=== PATIENT | male | born 1950 | race Caucasian/White ===

== ENCOUNTER → 2018-02-03 09:00 | Outpatient (CLI) | payer MEDICARE, BC, SELFPAY | PROVIDERS: PCP Nurse Practitioner Family; Visit Provider Orthopaedic Surgery | DX: Z47.1 Aftercare following joint replacement surgery (principal); Z96.652 Presence of left artificial knee joint | CPT/HCPCS: 99213 ==

== ENCOUNTER → 2018-09-29 09:00 | Outpatient (BNVA) | payer MEDICARE, BC, SELFPAY | PROVIDERS: PCP Nurse Practitioner Family; Visit Provider Orthopaedic Surgery | DX: Z47.1 Aftercare following joint replacement surgery (principal); Z96.643 Presence of artificial hip joint, bilateral; I10 Essential (primary) hypertension | CPT/HCPCS: 99211; 99212; 99213 ==

== ENCOUNTER 2018-10-26 09:00 | Outpatient (RCR) | payer MEDICARE, BC, SELFPAY | END 2018-10-27 23:59 | disposition home or self-care (01) | LOC: CR 09:00 | PROVIDERS: PCP Nurse Practitioner Family; Visit Provider Family Medicine | DX: Z95.1 Presence of aortocoronary bypass graft (principal); Z51.89 Encounter for other specified aftercare | CPT/HCPCS: S9472 ==

== ENCOUNTER 2018-11-27 11:53 | Outpatient (RCR) | payer MEDICARE, BC, SELFPAY | END 2018-11-27 23:59 | disposition home or self-care (01) | LOC: CR 11:53 | PROVIDERS: PCP Nurse Practitioner Family; Visit Provider Family Medicine | DX: Z95.1 Presence of aortocoronary bypass graft (principal); Z51.89 Encounter for other specified aftercare | CPT/HCPCS: S9472 ==

== ENCOUNTER 2018-12-25 11:21 | Outpatient (RCR) | payer MEDICARE, BC, SELFPAY | END 2018-12-27 23:59 | disposition home or self-care (01) | LOC: CR 11:21 | PROVIDERS: PCP Nurse Practitioner Family; Visit Provider Family Medicine | DX: Z95.1 Presence of aortocoronary bypass graft (principal); Z51.89 Encounter for other specified aftercare | CPT/HCPCS: S9472 ==

== ENCOUNTER 2019-01-01 09:00 | Outpatient (RCR) | payer MEDICARE, BC, SELFPAY | END 2019-01-27 23:59 | disposition home or self-care (01) | LOC: CR 09:00 | PROVIDERS: PCP Nurse Practitioner Family; Visit Provider Family Medicine | DX: Z95.1 Presence of aortocoronary bypass graft (principal); Z51.89 Encounter for other specified aftercare | CPT/HCPCS: S9472 ==

== ENCOUNTER 2019-07-06 13:56 | Emergency (ER) | payer MEDICARE, BC, SELFPAY ==
[2019-07-06] VITALS (25 sets, daily range): BP systolic 86–157; BP diastolic 56–92; PULSE 59–78; RESP 10–20; TEMP 36.8–37.2; O2SAT 83–99
[2019-07-06] MEDS: fentaNYL 100 MCG/2 ML VIAL (14:05)
--- NOTE | 2019-07-06 14:12 | DI.RAD_ITS ---
EXAM: XR HIP LT 1V INDICATION: HIP PAIN W PROBABLY DISLOCATION. COMPARISON: No exams were available for comparison TECHNIQUE: 2D digital imaging was performed. Portable exam FINDINGS: There is dislocation of the left hip prosthesis with the femoral component positioned superolateral t o the acetabular component. The penetration is suboptimal but no fractures are seen. The right tota l hip prosthesis appears intact. IMPRESSION: Dislocation of the left hip prosthesis.
[2019-07-06] MEDS: fentaNYL 100 MCG/2 ML VIAL IVP (14:15)
[2019-07-06] MEDS: Normal Saline 1,000 ML 150 ML IV (14:22)
[2019-07-06] MEDS: Propofol 200 MG/20 ML VIAL IVP (14:28)
--- NOTE | 2019-07-06 15:00 | DI.RAD_ITS ---
EXAM: XR HIP LT AP AND LAT ONLY INDICATION: POST REDUCTION. COMPARISON: No exams were available for comparison TECHNIQUE: 2D digital imaging was performed. FINDINGS: The previously noted dislocation has been reduced. No fracture is identified.
--- NOTE | 2019-07-06 15:19 | ED.GENADUL_ITS ---
Discharge Plan Disposition Patient Disposition: HOME Discharge Details Chief Complaint: Orthopedic Clinical Impression: Dislocation of internal left hip prosthesis, initial encounter Primary Care Provider: Henrique Webber ED Provider: Ziyad Miranda Home Meds and New Rx's Prescriptions: No Action metoprolol succinate 50 mg cap,sprinkle,ER 24hr dose pack 50 mg PO BID RF: 0 indomethacin 50 mg capsule 50 mg PO BID PRNRF: 0 simvastatin 40 MG tablet 40 mg PO DAILY RF: 0 lorazepam 1 MG tablet 1 mg PO .HS RF: 0 ibuprofen 200 MG tablet 200 - 800 mg PO PRN PRNRF: 0 aspirin [Aspirin Low-Strength] 81 MG tablet,chewable 81 mg PO DAILY RF: 0 multivitamin [Men's Multi-Vitamin] 1 EACH tablet 1 ea PO DAILY RF: 0 chlorthalidone 25 mg Tablet 12.5 mg PO DAILY RF: 0 Discharge Instructions Additional Instructions: 1. Drink plenty of fluids. 2. Continue all medications as prescribed. 3. Acetaminophen 1000mg every 4 hours (up to 5 time a day) as needed for fever or pain. 4. Mild to moderate activity as tolerated. No skiing. Follow-up with your orthopedic doctor in 1 month. Return to the Emergency Department (ED) if your condition worsens, does not improve as expected, or for ANY other concerns. Specifically, return if you have new or uncontrolled pain, worsening fever, difficulty breathing, vomiting, or are unable to drink fluids. Medical Decision Making Presented with acute left hip pain associated with an internal cyst rotation and hip flexion. Patient with clinical radiographic left prosthetic hip dislocation. Otherwise nonfocal exam and stable vital signs. X-ray confirmed dislocation. Hip successfully reduced emergently using procedural sedation with fentanyl and propofol. Reduction clinically confirmed and radiographically confirmed. On reevaluation patient is clinical improved with minimal focal hip pain. Discussed case with patient orthopedist, Dr. Ritu ruvalcaba, who recommended outpatient follow-up in 4 months with no need for mechanical knee immobilizer. Discussed outpatient management with patient and his spouse. Discharged home with a plan for activity as tolerated, no skiing until orthopedic follow-up. Given usual customary return instructions at time of discharge. Medical Records Medical records reviewed: Yes I reviewed the patient's medical records. Imaging Data Radiologic Study: Attestation: I personally reviewed and interpreted this imaging study as follows: Imaging: X-Ray (Portable single view hip) My impression: Dislocated prosthesis. Reviewed independently contemporaneously by myself. Radiologist's impression: Radiology interpretation not available at time of patient management. Radiologic Study #2: Attestation: I personally reviewed and interpreted this imaging study as follows: Imaging: X-Ray (Postreduction hip) My impression: Prosthetic hip with no stent in good anatomic position. Reviewed independently contemporaneously by myself. Radiologist's impression: Not available at time of patient management disposition. ECG Data Attestation: I personally reviewed and interpreted this ECG (s) as follows: Interpretation: Rhythm strip: NSR with no ectopy. Interpreted independently and contemporaneously by myself. HPI Mr. Henning is a 5-year-old gent with a past medical history which includes CABG, multiple orthopedic surgeries including bilateral THRs. He presents via EMS with an acute onset of severe left hip pain and deformity. Ms. Doe describes bending forward with a internally rotated hip when he felt a sudden popping sensation in the hip with severe associated pain. He was unable to straighten his hip or knee because of severe pain. He denies any other significant injury. On arrival, he is lying supine with a flexed/internally rotated hip and has localized pain at his left hip joint. He denies chest pain, palpitations, dyspnea, abdominal pain, or atypical sensation in his left lower extremity. General Date/Time Provider Initiated Documentation: 07/06/19 14:04 . Related Data Home Medications Medication Instructions Recorded Confirmed lorazepam 1 mg PO .HS 01/17/14 07/06/19 simvastatin 40 mg PO DAILY 01/17/14 07/06/19 aspirin [Aspirin Low-Strength] 81 mg PO DAILY 10/10/17 07/06/19 ibuprofen 200 - 800 mg PO PRN PRN 10/10/17 07/06/19 multivitamin [Men's Multi-Vitamin] 1 ea PO DAILY 10/10/17 07/06/19 indomethacin 50 mg capsule 50 mg PO BID PRN 09/29/18 07/06/19 metoprolol succinate 50 mg capsule 50 mg PO BID dose pk 09/29/18 07/06/19 sprinkle, ext. release 24 hr chlorthalidone 12.5 mg PO DAILY 07/06/19 07/06/19 Allergies Allergy/AdvReac Type Severity Reaction Status Date / Time cinnamon Allergy Unknown swelling Unverified 07/06/19 14:06 lips/throat allopurinol AdvReac Severe Contraindic Unverified 07/06/19 14:48 ated meperidine AdvReac Severe confusion, Unverified 07/06/19 14:06 nausea/vomiting morphine AdvReac Severe Other (See Unverified 07/06/19 14:06 Comment) General Stated Complaint: Orthopedic ANABELLE: 2 Review of Systems All systems reviewed & are unremarkable except as noted in HPI and below PFSH Medical History Benign hypertension Surgical History Arthroplasty of knee (10/01/06) left , medial meniscectomy, chondroplasty medial femoral condyle, chondroplasty second compartment trochlea of the femur and patellofemoral joint. Right medial meniscectomy and limited chondroplasty on 02/10/2003. 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 GENERAL: alert, active, no acute distress, well -hydrated, well-nourished HEENT: atraumatic/normocephalic, PERRLA, EOMI, conjunctiva clear, external ears/canals normal, nasal mucosa normal NECK: supple, full range of motion, no mass, normal lymphadenopathy, no thyromegaly CARDIOVASCULAR: RRR, no murmurs, nl pulses, no edema PULMONARY: nl effort, no audible wheezing or stridor, nl breath sounds with no focal deficit. no chest wall tenderness ABDOMEN: soft, non-tender, non-distended, no mass, no organomegaly EXTREMITY: normal muscle tone, left leg in a flexed internally rotated position. Tenderness at the left hip joint. There is no significant tenderness along the 5 or knee. Normal peripheral neurovascular exam. SKIN: no exanthem appreciated NEURO: gross motor exam normal, normal stance and gait PSYCH: alert and oriented, Course Vital Signs Vital signs: Vital Signs Temperature 99.0 F 07/06/19 13:56 Pulse 73 07/06/19 13:56 Respiratory Rate 18 07/06/19 13:56 Blood Pressure 152/90 H 07/06/19 13:56 Pulse Oximetry 97 07/06/19 13:56 Temperature 99.0 F 07/06/19 13:56 Temperature Source Skin 07/06/19 13:56 Pulse 64 07/06/19 14:50 Pulse 65 07/06/19 14:50 Respiratory Rate 18 07/06/19 14:50 Respiratory Effort Non-Labored 07/06/19 14:48 Blood Pressure 111/67 07/06/19 14:50 Blood Pressure Mean 79 07/06/19 14:50 Blood Pressure Position Supine 07/06/19 13:56 Pulse Oximetry 97 07/06/19 14:50 Respiratory End-tidal CO2 32 07/06/19 14:50 Oxygen Delivery Method Room Air 07/06/19 13:56 Oxygen Flow Rate 0 07/06/19 13:56 Pain Level 10 07/06/19 14:15 Procedures Orthopedic Joint Reduction Joint #1: Time Out Performed: Yes Side: left Joint Reduction Location: hip Analgesia: procedural sedation (Propofol) Post-reduction neuro exam: intact Post Reduction X-Ray Obtained: Yes Post Reduction X-Ray Results: reduced Splint Applied: No Patient Tolerated Procedure: well Additional Comments: Under procedural sedation, left hip reduced with ventral/internal traction without difficulty. Range of motion normal and prosthetic joint palpable in the correct anatomical position under procedural sedation. Reduction confirmed radiographically. Procedural Sedation Indication: fracture/dislocation reduction Presedation Evaluation: Severe left hip pain with a clinical and radiographic prosthetic hip dislocation Preparation: hospital monitor applied, pulse oximeter, capnometry used, suction/airway equipment at bedside and IV secured Fentanyl: IV (200) IV Propofol dose (mg): 150 Patient Tolerated Procedure: well Complications: none Interventions: oxygen applied
== END 2019-07-06 15:43 | disposition home or self-care (01) ==
PROVIDERS: Emergency Provider Emergency Medicine; PCP Nurse Practitioner Family
DX: T84.021A Dislocation of internal left hip prosthesis, initial encounter (principal); X50.9XXA Other and unspecified overexertion or strenuous movements or postures, initial encounter; Y93.23 Activity, snow (alpine) (downhill) skiing, snowboarding, sledding, tobogganing and snow tubing; Z96.642 Presence of left artificial hip joint
CPT/HCPCS: 27250; 93005; 96361; 96374; 96375; 99285; 73501; 73502; 93010; 99284; J2704; J3010

== ENCOUNTER → 2019-08-04 09:31 | Outpatient (BNVA) | payer MEDICARE, BC, SELFPAY | PROVIDERS: PCP Nurse Practitioner Family; Referring Provider Nurse Practitioner Family; Visit Provider Orthopaedic Surgery | DX: T84.021A Dislocation of internal left hip prosthesis, initial encounter (principal); X50.9XXA Other and unspecified overexertion or strenuous movements or postures, initial encounter; Z96.652 Presence of left artificial knee joint | CPT/HCPCS: 99212; 99214 ==

== ENCOUNTER 2019-08-09 01:24 | Outpatient (CLI) | payer MEDICARE, BC, SELFPAY ==
--- NOTE | 2019-08-09 08:20 | DI.CT_ITS ---
EXAM: CT LOWER EXTREMITY LT WO CLINICAL HISTORY: F/U DISLOCATION LEFT TOTAL HIP, UNSPECIFIED SUBLUXATION LT HIP S73.002D TECHNIQUE: Noncontrast COMPARISON: XR HIP LT AP LAT ONLY from 07/06/2019 XR HIP LT AP LAT ONLY from 07/06/2019 XR HIP LT 1V from 07/06/2019 FINDINGS: There is a total left hip prosthesis. There is no evidence of dislocation or fracture. There is a fluid collection seen posterolateral to the hip. There is an adjacent area of cortical loss. No abn ormal lucency is seen around the prosthesis. IMPRESSION: Bony erosion of the posterior aspect of the greater trochanter with adjacent fluid collection. This m ay represent osteomyelitis.
== END 2019-08-09 01:44 ==
PROVIDERS: PCP Nurse Practitioner Family; Visit Provider Orthopaedic Surgery
DX: S73.00 Unspecified subluxation and dislocation of hip (principal); Z96.642 Presence of left artificial hip joint; T84.021D Dislocation of internal left hip prosthesis, subsequent encounter
CPT/HCPCS: 73700

== ENCOUNTER → 2019-08-11 11:06 | Outpatient (BNVA) | payer MEDICARE, BC, SELFPAY | PROVIDERS: PCP Nurse Practitioner Family; Referring Provider Nurse Practitioner Family; Visit Provider Orthopaedic Surgery | DX: T84.021A Dislocation of internal left hip prosthesis, initial encounter (principal) | CPT/HCPCS: 99213 ==

== ENCOUNTER → 2019-09-08 09:10 | Outpatient (BNVA) | payer MEDICARE, BC, SELFPAY | PROVIDERS: PCP Nurse Practitioner Family; Referring Provider Nurse Practitioner Family; Visit Provider Orthopaedic Surgery | DX: T84.021A Dislocation of internal left hip prosthesis, initial encounter (principal) | CPT/HCPCS: 99213 ==